=== PATIENT | female | born 1975 | race African-American/Black ===

== ENCOUNTER 2020-09-02 11:24 | Emergency (ER) | payer SELFPAY ==
[~2020-09-02] VITALS: Ht 177.8 cm; Wt 115.0 kg
[2020-09-02] MEDS ORDERED: HALOPERIDOL LACTATE 5MG/ML VIAL IM ONE ×2 (12:30→15:30)
[2020-09-02] MEDS ORDERED: LORAZEPAM 2MG/ML CPJ IM ONE (12:30)
[2020-09-02 13:10] LABS: BASOPHILS % 0.5 % (0.0-2.0); EOSINOPHILS % 0.1 % (0.0-5.0); HEMATOCRIT. 38.1 % (36.0-48.0); HEMOGLOBIN. 13.4 g/dL (12.0-16.0); MEAN CORPUSCULAR HEMOGLOBIN 30.8 pg (28.0-32.0); MEAN CORPUSCULAR VOLUME 87.8 fL (81.0-99.0); MEAN PLATELET VOLUME 8.9 fl (7.4-10.4); MONOCYTES % 7.6 % (2.0-8.0); NEUTROPHILS % 82.8 % (40.0-76.0); PLATELET 199 x1000/uL (130-400); RED BLOOD CELL COUNT 4.34 mill/uL (4.2-5.4); RED CELL DISTRIBUTION WIDTH 13.7 % (11.6-14.6)
[2020-09-02 13:17] LABS: CHLORIDE 116 mEq/L (98-107)
[2020-09-02 13:22] LABS: ETHANOL BLOOD < 10 mg/dL
[2020-09-02 13:38] LABS: HCG SCREEN NEGATIVE
[2020-09-02] MEDS ORDERED: LACTATED RINGERS 2,000 ML IV SCH (17:00)
[2020-09-02 19:07] LABS: CHLORIDE 116 mEq/L (98-107)
[2020-09-02 19:39] LABS: CLARITY URINE CLOUDY (CLEAR); COLOR URINE DARK YELLOW (YELLOW); KETONES URINE 3+ (NEGATIVE); LEUKOCYTE ESTERASE URINE 1+ (NEGATIVE); NITRITE URINE NEGATIVE (NEGATIVE); OCCULT BLOOD URINE NEGATIVE (NEGATIVE); PH URINE 5.5 (4.5-8.0); PROTEIN URINE 2+ (NEGATIVE); SPECIFIC GRAVITY URINE 1.039 (1.005-1.030)
[2020-09-02 20:46] LABS: *AMPHETAMINES SCREEN URINE NEGATIVE (NEGATIVE); *BARBITURATES SCREEN URINE NEGATIVE (NEGATIVE); *BENZODIAZEPINES SCREEN URINE NEGATIVE (NEGATIVE); *COCAINE SCREEN URINE NEGATIVE (NEGATIVE); METHADONE URINE SCREEN NEGATIVE (NEGATIVE); OPIATES URINE SCREEN NEGATIVE (NEGATIVE)
[2020-09-02 20:47] LABS: PHENCYCLIDINE URINE SCREEN NEGATIVE (NEGATIVE)
[2020-09-02 21:03] LABS: CANNABINOID URINE SCREEN PRESUMTIVE POSITIVE (NEGATIVE)
[2020-09-02] MEDS ORDERED: CEFTRIAXONE 1 G PREMIX 50 ML IV ONE (22:45)
[2020-09-02] MEDS ORDERED: LIDOCAINE HCL 1% 20ML VIAL (Pyxis) INJ INFIL ONE (23:00)
[2020-09-02] MEDS ORDERED: CEFTRIAXONE SODIUM 1 G/VIAL IM ONE (23:00)
[2020-09-03] MEDS ORDERED: OLANZAPINE 10MG TABLET PO SCH (05:45)
[2020-09-04 13:22] VITALS: BP 138/89
== END 2020-09-04 14:12 ==
LOC: ER 11:24
DX: T39.011A Poisoning by aspirin, accidental (unintentional), initial encounter (principal); R45.1 Restlessness and agitation; N39.0 Urinary tract infection, site not specified; F20.9 Schizophrenia, unspecified; D72.829 Elevated white blood cell count, unspecified; E87.6 Hypokalemia; E87.0 Hyperosmolality and hypernatremia; Y92.89 Other specified places as the place of occurrence of the external cause
CPT/HCPCS: 36415; 80048; 80076; 80305; 80307; 80320; 80329; 81003; 82140; 84703; 85025; 93005; 96372; 99285; J0696; J1630; J2060; J3490; Z7610; G0480